=== PATIENT | female | born 1970 | race Caucasian/White ===

== ENCOUNTER → 2018-10-24 15:31 | Outpatient (CLI) | payer OTHER, SELFPAY ==
--- NOTE | 2018-10-24 | DI.US.S_ITS ---
PROCEDURE: US THYROID INDICATIONS: THYROID NODULE TECHNIQUE: Real-time scanning was performed of the thyroid gland, with image documentation. COMPARISON: [facility], US, THYROID, 04/21/2012, 16:10. [facility], US, THYROID, 03/26/2010, 11:06. FINDINGS: Right: The right thyroid lobe measures 1.4 x 1.5 x 4.9 cm and contains 3 very small nodular radiodensities near the isthmus and at the mid/upper right thyroid lobe measuring 4 mm, 5 mm and 6 mm in maximal dimension respectively. The glandular parenchyma is moderately heterogeneous on the right. Left: The left thyroid lobe is normal in size at 1.0 x 1.0 x 1.5 cm without nodule or mass. The glandular parenchyma is mildly heterogeneous on the left. Isthmus: The isthmus measures up to 4 mm. IMPRESSION: Mild to moderate heterogeneity of the thyroid echotexture, with 3 very small thyroid nodules at the right thyroid lobe, which would not be recommended for biopsy. The heterogeneity of the thyroid parenchyma generally is ascribed to prior episodes of thyroiditis. Dictated by: Jimmy Thomson M.D. on 10/24/2018 at 17:21 Approved by: Jimmy Thomson M.D. on 10/24/2018 at 17:23
== END ==
PROVIDERS: PCP Physician Assistant; Visit Provider Physician Assistant
DX: E04.2 Nontoxic multinodular goiter (principal)
CPT/HCPCS: 76536

== ENCOUNTER → 2019-01-05 16:44 | Outpatient (CLI) | payer OTHER, SELFPAY ==
--- NOTE | 2019-01-05 | DI.MG.S_ITS ---
BILATERAL DIGITAL SCREENING MAMMOGRAM 3D/2D WITH CAD: 01/05/2019 CLINICAL: Routine screening. Family history of breast cancer. Comparison is made to exams dated: 09/02/2017 mammogram, 07/17/2016 mammogram, and 05/06/2015 mammogram - [facility]. The tissue of both breasts is heterogeneously dense. This may lower the sensitivity of mammography. Current study was also evaluated with a Computer Aided Detection (CAD) system. No significant masses, calcifications, or other findings are seen in either breast. There has been no significant interval change. IMPRESSION: NEGATIVE There is no mammographic evidence of malignancy. A 1 year screening mammogram is recommended. This exam was interpreted at Station ID: [id number]. NOTE: For mammograms, a report in lay terms will be sent to the patient. Approximately 15% of breast malignancies will not be visualized mammographically. In the management of a palpable breast mass, a negative mammogram must not discourage biopsy of a clinically suspicious lesion. Electronically Signed By: Jeet carreon/hailey:01/05/2019 21:02:56 copy to: Nikhil Calix letter sent: Normal Exam ACR BI-RADS Category 1: Negative 3341F
== END ==
PROVIDERS: PCP Physician Assistant; Visit Provider Physician Assistant
DX: Z12.31 Encounter for screening mammogram for malignant neoplasm of breast (principal); Z80.3 Family history of malignant neoplasm of breast
CPT/HCPCS: 77063; 77067

== ENCOUNTER → 2020-10-11 16:28 | Outpatient (CLI) | payer OTHER, SELFPAY ==
--- NOTE | 2020-10-11 | DI.MG.S_ITS ---
BILATERAL DIGITAL SCREENING MAMMOGRAM 3D/2D WITH CAD: 10/11/2020 CLINICAL: Routine screening. Family history of breast cancer. Comparison is made to exams dated: 01/05/2019 mammogram, 09/02/2017 mammogram, 07/17/2016 mammogram, 05/06/2015 mammogram, and 03/08/2014 mammogram - [facility]. The tissue of both breasts is heterogeneously dense. This may lower the sensitivity of mammography. Current study was also evaluated with a Computer Aided Detection (CAD) system. No significant masses, calcifications, or other findings are seen in either breast. There has been no significant interval change. IMPRESSION: NEGATIVE There is no mammographic evidence of malignancy. A 1 year screening mammogram is recommended. This exam was interpreted at Station ID: [id number]. NOTE: For mammograms, a report in lay terms will be sent to the patient. Approximately 15% of breast malignancies will not be visualized mammographically. In the management of a palpable breast mass, a negative mammogram must not discourage biopsy of a clinically suspicious lesion. Electronically Signed By: Jovanny stoll/hailey:10/12/2020 00:23:09 copy to: Nikhil Calix letter sent: Normal Exam ACR BI-RADS Category 1: Negative 3341F
== END ==
PROVIDERS: PCP Student in an Organized Health Care Education/Training Program; Referring Provider Family Medicine; Visit Provider Family Medicine
DX: Z12.31 Encounter for screening mammogram for malignant neoplasm of breast (principal); Z80.3 Family history of malignant neoplasm of breast
CPT/HCPCS: 77063; 77067

== ENCOUNTER → 2021-04-01 15:39 | Outpatient (CLI) | payer OTHER, SELFPAY ==
--- NOTE | 2021-04-01 15:40 | DI.US.S_ITS ---
PROCEDURE: US PELVIC COMPLETE INDICATIONS: RIGHT LOWER QUADRANT PAIN TECHNIQUE: Real-time scanning was performed of the pelvic organs, with image documentation. Additional endovaginal scanning was necessary due to incomplete visualization of the adnexal and endometrial structures by transabdominal scanning. COMPARISON: None. FINDINGS: Uterus: Uterus is normal in size at 8.5 x 5.7 x 4.4 cm. The endometrium measures 6.8 mm in combined thickness. IUD is in appropriate position. Ovaries: Within normal limits bilaterally. Anechoic septated cysts within the right ovaries are present, measuring 35 mm and 29 mm. Multiple punctate echogenic foci within the left ovary are present. Other: No pathologic free abdominal or pelvic fluid. IMPRESSION: 1. Right ovarian cysts; recommend follow-up ultrasound in 6 weeks to ensure resolution. Dictated by: Ishaan Potter M.D. on 04/02/2021 at 11:10 Approved by: Ishaan Potter M.D. on 04/02/2021 at 11:12
== END ==
PROVIDERS: PCP Student in an Organized Health Care Education/Training Program; Referring Provider Obstetrics & Gynecology; Visit Provider Obstetrics & Gynecology
DX: R10.31 Right lower quadrant pain (principal); N83.291 Other ovarian cyst, right side
CPT/HCPCS: 76830; 76856

== ENCOUNTER → 2021-06-16 13:25 | Outpatient (CLI) | payer OTHER, SELFPAY ==
[2021-06-16 15:44] LABS: COVID19 -Nasal RAPID Negative (Negative)
== END ==
PROVIDERS: PCP Student in an Organized Health Care Education/Training Program; Visit Provider Physician Assistant
DX: Z20.822 Contact with and (suspected) exposure to COVID-19 (principal)
CPT/HCPCS: 87635

== ENCOUNTER 2021-06-17 07:56 | Day surgery (SDC) | payer OTHER, SELFPAY ==
--- NOTE | 2021-06-17 | PATH_ITS ---
[facility] Accession Number: [id number] . 01 Material submitted: . rectum - RECTUM POLYP . 01 Clinical history: . SCREENING COLONOSCOPY . 02 Diagnosis: Rectum Polyp: Tubular adenoma. MRV 06/23/2021 1019 Local . 02 Electronically signed: . Jess Tolliver MD, Pathologist NPI- [id number] . 01 Gross description: . RECTUM POLYP: Received in formalin is 1 fragment(s) of ross, soft tissue measuring 0.2 x 0.2 x 0.2 cm submitted entirely in 1 cassette(s) /MARKIE 06/18/2021 1854 Local . 02 Pathologist provided ICD-10: Z12.11, K63.5 . 02 CPT . 811785 Performed at: 01 [facility] [address] [facility], [place], [place] [id number] MD Hever Morgan MD Phone: [phone] Performed at: 02 [facility] [address] [place], [place] [id number] MD Ivonne Mcgowan MD Phone: [phone]
--- NOTE | 2021-06-17 08:26 | PM.HP.1 ---
History of Present Illness History of Present Illness Date Patient Seen: 06/17/21 Time Patient Seen: 08:26 Chief complaint: SCREENING COLONOSCOPY Narrative: I reviewed my note from May 05, 2021. No significant changes. Patient History Medical History Asthma Heartburn History of abnormal cervical Pap smear Surgical History Status post knee surgery Family & Social History Tobacco & Substance use: Smoking Status Never smoker Meds Home Medications and Allergies Home Medications Medication Instructions Recorded Confirmed Type levonorgestrel 20 mcg/24 hours (7 INTRAUTERINE 01/17/03/21/21 History yrs) 52 mg intrauterine device (Mirena) Pepto-Bismol PRN 06/16/21 History Tart Yu 06/16/21 History rjkwmee-tpeu-nmlpm-oreg-capryl 06/16/21 History Allergies Allergy/AdvReac Type Severity Reaction Status Date / Time erythromycin base AdvReac Intermediate N/V Verified 06/17/21 08:27 Review of Systems Review of Systems ROS: Yes All systems reviewed with the patient and are negative except as otherwise documented Exam Const General: cooperative and comfortable Orientation: alert HENMT Head: normocephalic Ears: external ears normal Nose: external nose normal Face and sinus: normal facial exam Mouth: oral mucosae normal Eyes General: appearance normal, both eyes and all related structures Neck Neck: normal visual inspection Chest Chest: normal inspection of the chest Resp Effort & Inspection: normal respiratory effort Cardio Rate: regular rate GI Inspection: normal to inspection Skin General: no rashes or lesions noted and No jaundice Neuro General: patient alert and moves all extremities Cognition: normal cognition Speech: speech normal Extrem General: no pedal edema Psych Appearance: grossly normal Assessment & Plan Assessment & Plan narrative: 50-year-old female with chronic right lower quadrant pain of uncertain etiology. She has a slight tendency towards constipation but has not noticed any significant improvement with fiber regimen nor the cleanout for colonoscopy. Colonoscopy is planned for today. Time Spent With Patient Critical Care time: I spent a total of [] minutes of critical care time on this patient's care today; this time is exclusive of procedural time.
[2021-06-17 08:28] VITALS: BP 126/80; PULSE 66; RESP 16; TEMP 36.5; O2SAT 98; BMI 27.9
--- NOTE | 2021-06-17 08:28 | PM.PREOP ---
Pre-operative Note COVID-19 COVID-19 status: Negative Result date/Date tested (Pos, Neg/Pending): 06/16/21 Interval Note History & Physical reviewed/Exam performed by Physician: Yes Changes to H&P: No ASA Class (for procedural sedation): II
[2021-06-17] MEDS: SODIUM CHLORIDE 0.9% 1,000 ML 84 ML IV (08:46)
--- NOTE | 2021-06-17 09:47 | PM.OP.COLON ---
Operative Date/Time/Diagnoses Date of procedure: 06/17/21 Time of procedure: 09:47 Pre-op diagnosis: Right lower quadrant pain Post-op diagnosis: same Procedure & Clinicians Study performed: Colonoscopy with cold forceps polypectomy Same procedure as scheduled: Yes Indications: Right lower quadrant pain Surgeon: Andrea Douglas Procedure Notes SCOAP/Timeout: Done Procedure in detail: After the risks and benefits were explained, written and verbal informed consent was obtained. The patient was brought into the procedure room and placed into the left lateral decubitus position. Please see nurse glass technologist notes for sedation details. Digital rectal examination was accomplished. The scope was introduced into the patient and advanced under direct visualization to the cecum as identified by the appendiceal orifice and ileocecal valve. The scope was slowly withdrawn to carefully examine the mucosa for any defects or lesions. Comprehensive imaging was accomplished throughout the rectum including the dentate line. The colon was decompressed, the scope was then removed from the patient who tolerated the procedure well. Bowel prep adequate Adult colonoscope Scope withdrawal time: 8 minutes Sedation minutes: 20 Complications: none Impression: Patient had a fairly lengthy somewhat redundant colon. No evidence of proctitis no colitis. The terminal ileum was interrogated and appeared visually normal. There were no endoscopic findings to account for her right lower quadrant pain. There was a diminutive 3-4 mm polyp in the proximal rectum removed with cold forceps. Patient had grade 2 grade 3 nonbleeding nonthrombosed hemorrhoids. Endoscopic diagnosis 1. Colon polyp 2. Grade 2-3 hemorrhoids Post-procedure Plan for aftercare: 1. Await histopathology 2. If adenomatous features are confirmed, repeat colonoscopy will be suggested for 5 years time. 3. Consider further cross-sectional abdominal imaging to to investigate right lower quadrant symptoms. Disposition: PACU
[2021-06-17 09:49] VITALS: BP 122/74; PULSE 69; RESP 28; TEMP 36.6; O2SAT 97
[2021-06-17 09:54] VITALS: BP 123/88; PULSE 59; RESP 11; O2SAT 100
[2021-06-17 09:59] VITALS: BP 118/93; PULSE 59; RESP 16; O2SAT 99
[2021-06-17 10:08] VITALS: BP 128/75; PULSE 57; RESP 100
== END 2021-06-17 10:24 | disposition home or self-care (01) ==
PROVIDERS: PCP Student in an Organized Health Care Education/Training Program; Referring Provider Internal Medicine Gastroenterology; Visit Provider Internal Medicine Gastroenterology
PROC: 0DJD8ZZ Inspection of Lower Intestinal Tract, Via Natural or Artificial Opening Endoscopic (ICD-10-PCS; CPT 45378; principal; 2021-06-17 09:30)
DX: R10.31 Right lower quadrant pain (principal); K21.9 Gastro-esophageal reflux disease without esophagitis; K64.2 Third degree hemorrhoids; D12.8 Benign neoplasm of rectum
CPT/HCPCS: 45380; J2704

== ENCOUNTER → 2021-07-08 15:51 | Outpatient (CLI) | payer OTHER, SELFPAY ==
--- NOTE | 2021-07-08 15:52 | DI.US.S_ITS ---
PROCEDURE: US PELVIC COMPLETE INDICATIONS: RIGHT OVARIAN CYST FOLLOW UP TECHNIQUE: Real-time scanning was performed of the pelvic organs, with image documentation. Additional endovaginal scanning was necessary due to incomplete visualization of the adnexal and endometrial structures by transabdominal scanning. COMPARISON: [facility], US, US PELVIC COMPLETE, 04/01/2021, 16:05. FINDINGS: Uterus: Uterus is anteverted and normal in size at 8.2 x 5.4 x 4.1 cm. The myometrium is mildly heterogeneous. The endometrium measures 4.2 mm combined thickness. An intrauterine device is seen, seated within the fundal region. Hypoechoic lesions are seen in the cervix, compatible with a both in cyst. Small amount of fluid with debris is seen within the cervical canal. Ovaries: The right ovary measures 4.6 x 3.2 x 2 cm anechoic lesion in the right ovary, measuring up to 3.2 cm, compatible with a cyst. The left ovary measures 2.8 x 2.4 x 1.3 cm. The left ovary has a normal sonographic appearance. Other: No pathologic free abdominal or pelvic fluid. IMPRESSION: 1. Simple appearing right ovarian cyst as detailed above 2. Small amount of fluid in the cervical canal. We strive to produce accurate, complete, and clear reports of imaging services. To assist us in improving patient care, this report was composed using standard report templates and voice recognition software. Therefore, it may contain abnormal punctuation, insertions and/or omissions. Occasional wrong-word or sound-alike substitutions may occur. Though we review the report and make efforts to correct it, we do recommend that the report be read carefully in proper context to recognize any text inaccuracies. Dictated by: Carlito Salinas M.D. on 07/08/2021 at 16:58 Approved by: Carlito Salinas M.D. on 07/08/2021 at 17:00
== END ==
PROVIDERS: PCP Student in an Organized Health Care Education/Training Program; Referring Provider Obstetrics & Gynecology; Visit Provider Obstetrics & Gynecology
DX: N83.201 Unspecified ovarian cyst, right side (principal); R10.31 Right lower quadrant pain
CPT/HCPCS: 76830; 76856

== ENCOUNTER → 2022-01-28 12:48 | Outpatient (CLI) | payer OTHER, SELFPAY ==
--- NOTE | 2022-01-28 12:50 | DI.US.S_ITS ---
PROCEDURE: US PELVIC COMPLETE INDICATIONS: ovarian cyst f/u TECHNIQUE: Real-time scanning was performed of the pelvic organs, with image documentation. Additional endovaginal scanning was necessary due to incomplete visualization of the adnexal and endometrial structures by transabdominal scanning. COMPARISON: [facility], , PELVIC COMPLETE, 04/01/2021, 16:05. [facility], , PELVIC COMPLETE, 07/08/2021, 15:57. FINDINGS: Uterus: Uterus is anteverted and normal in size at 10.6 x 6.5 x 5.4 cm. The myometrium is homogeneous. The endometrium measures 9 mm combined thickness. The IUD is seen at its expected location. Ovaries: The right ovary measures 4.9 x 3.8 x 3.1 cm, with a calculated ovarian volume of 30 cc. The right ovary demonstrates a complex cyst that measures 2.9 x 2.7 x 2.6 cm, which previously measured 3.2 x 3.1 x 1.8 cm. The left ovary measures 4.2 x 4.7 x 2.8 cm, with a calculated ovarian volume of 28.7 cc. The left ovary demonstrates 2 anechoic cyst that measure up to 2.7 up to 2.5 cm, which are considered to be within physiologic limits. Less than 12 follicles can be seen in each ovary. No adnexal masses are seen. Normal appearing arterial and venous waveforms are confirmed to each ovary. Other: No pathologic free abdominal or pelvic fluid. IMPRESSION: Decreased size of the previously seen complex cyst of the right ovary. In a patient of this age, no specific imaging follow-up is recommended, although attention should be paid to this focus on any future follow-up studies. The IUD is seen at its expected location. We strive to produce accurate, complete, and clear reports of imaging services. To assist us in improving patient care, this report was composed using standard report templates and voice recognition software. Therefore, it may contain abnormal punctuation, insertions and/or omissions. Occasional wrong-word or sound-alike substitutions may occur. Though we review the report and make efforts to correct it, we do recommend that the report be read carefully in proper context to recognize any text inaccuracies. Dictated by: Kt Downs M.D. on 01/28/2022 at 13:41 Approved by: Ольга LinaresD. on 01/28/2022 at 13:43
== END ==
PROVIDERS: PCP Student in an Organized Health Care Education/Training Program; Referring Provider Obstetrics & Gynecology; Visit Provider Obstetrics & Gynecology
DX: N83.201 Unspecified ovarian cyst, right side (principal); Z97.5 Presence of (intrauterine) contraceptive device
CPT/HCPCS: 76856

== ENCOUNTER → 2022-04-02 15:59 | Outpatient (CLI) | payer OTHER, SELFPAY ==
--- NOTE | 2022-04-02 16:00 | DI.MG.S_ITS ---
BILATERAL DIGITAL SCREENING MAMMOGRAM 3D/2D WITH CAD: 04/02/2022 CLINICAL: Routine screening. Family history of breast cancer. Comparison is made to exams dated: 10/11/2020 mammogram, 01/05/2019 mammogram, and 09/02/2017 mammogram - [facility]. Both breasts are heterogeneously dense, which may obscure small masses (category c / 51-75% glandular tissue). Current study was also evaluated with a Computer Aided Detection (CAD) system. No significant masses, calcifications, or other findings are seen in either breast. There has been no significant interval change. IMPRESSION: NEGATIVE There is no mammographic evidence of malignancy. A 1 year screening mammogram is recommended. Based on Tyrer-Cuzick model (a risk assessment model), the patient's lifetime risk is 23.7% and her 10 year risk is 6.2%. If a patient has an elevated risk, a more comprehensive evaluation should be considered and/or a referral to a genetic counselor. The [employer], [employer], and NCCN Guidelines advise the consideration of Breast MRI as an adjunct to screening mammography in patients whose Lifetime risk to develop breast cancer is 20% or higher. This exam was interpreted at Station ID: [id number]. NOTE: For mammograms, a report in lay terms will be sent to the patient. Approximately 15% of breast malignancies will not be visualized mammographically. In the management of a palpable breast mass, a negative mammogram must not discourage biopsy of a clinically suspicious lesion. Electronically Signed By: John madison/hailey:04/03/2022 09:47:42 copy to: Nikhil Calix letter sent: Normal Exam ACR BI-RADS Category 1: Negative 3341F
== END ==
PROVIDERS: PCP Student in an Organized Health Care Education/Training Program; Referring Provider Student in an Organized Health Care Education/Training Program; Visit Provider Student in an Organized Health Care Education/Training Program
DX: Z12.31 Encounter for screening mammogram for malignant neoplasm of breast (principal); Z80.3 Family history of malignant neoplasm of breast
CPT/HCPCS: 77063; 77067

== ENCOUNTER → 2023-07-30 17:59 | Outpatient (CLI) | payer OTHER, SELFPAY ==
--- NOTE | 2023-07-30 18:01 | DI.RAD.S_ITS ---
PROCEDURE: XR CHEST 2V INDICATIONS: Cough on and off x 1.5 months TECHNIQUE: 2 views of the chest were acquired. COMPARISON: None. FINDINGS: Surgical changes and devices: None. Lungs and pleura: No dense consolidation or pleural effusion. Mediastinum: Normal heart size Bones and chest wall: Possible indeterminate opacity projecting under the left hemidiaphragm on lateral view. IMPRESSION: No acute radiographic abnormality. Indeterminate nodular opacity or artifact projecting under the left hemidiaphragm on lateral view. Approved by: Noe Randhawa M.D. on 07/30/2023 at 21:26
== END ==
PROVIDERS: PCP Physician Assistant; Visit Provider Physician Assistant
DX: R05.9 Cough, unspecified (principal)
CPT/HCPCS: 71046